=== PATIENT | male | born 1940 | race African-American/Black ===

== ENCOUNTER 2019-01-23 02:13 | Emergency (ER) | payer MEDICARE ==
[~2019-01-23] VITALS: Ht 188 cm; Wt 91.0 kg
[~2019-01-23 02:13] MED LIST: ALLO100T PO; AMLO10TA80 PO; CARI-166 PO; POTA99TA15 PO
[2019-01-23] MEDS ORDERED: TETANUS, DIPHTHERIA, PERTUSSIS VAC/PF 0.5ML (>7YR OLD) IM ONE (03:45)
[2019-01-23] MEDS ORDERED: BACITRACIN ZINC OINT UDPKT TOP ONE (03:45)
[2019-01-23] MEDS ORDERED: LIDOCAINE HCL/PF 1% 10 MG/ML 5ML VIAL IJ ONE (03:45)
[2019-01-23 05:32] VITALS: BP 148/79
== END 2019-01-23 05:32 | disposition home or self-care (01) ==
LOC: ER 02:28
DX: S01.111A Laceration without foreign body of right eyelid and periocular area, initial encounter (principal); W10.8XXA Fall (on) (from) other stairs and steps, initial encounter; Y93.89 Activity, other specified; Y92.89 Other specified places as the place of occurrence of the external cause; Y99.8 Other external cause status
CPT/HCPCS: 12014; 70450; 90471; 90715; 99284; J3490

== ENCOUNTER → 2019-11-21 | Outpatient (CLI) | payer MEDICARE ==
[~2019-11-21] MED LIST changes: -CARI-166 PO; +CARI350T28 PO
== END | disposition home or self-care (01) ==
LOC: LAB 08:59
PROVIDERS: ATTEND Internal Medicine Endocrinology, Diabetes & Metabolism
DX: Z20.828 Contact with and (suspected) exposure to other viral communicable diseases (principal)
CPT/HCPCS: 87635

== ENCOUNTER → 2019-11-23 | Day surgery (SDC) | payer MEDICARE ==
[~2019-11-23] MED LIST changes: +LIDOCAINE HCL 1% 20ML VIAL (Pyxis) INJ ONE; +SODIUM BICARBONATE 4% (2.4MEQ) 5ML VIAL IV ONE
== END | disposition home or self-care (01) ==
LOC: RAD 09:30
PROVIDERS: ATTEND Internal Medicine Endocrinology, Diabetes & Metabolism
DX: E04.2 Nontoxic multinodular goiter (principal); Z79.899 Other long term (current) drug therapy
CPT/HCPCS: 10005; 10006; 88305; J3490

== ENCOUNTER 2020-10-09 15:18 | Inpatient (IN) | payer MEDICARE ==
[~2020-10-09] VITALS: Ht 188 cm; Wt 104.9 kg
[~2020-10-09 15:18] MED LIST changes: -LIDOCAINE HCL 1% 20ML VIAL (Pyxis) INJ ONE; -SODIUM BICARBONATE 4% (2.4MEQ) 5ML VIAL IV ONE
[2020-10-09 21:10] LABS: BASOPHILS % 0.2 % (0.0-2.0); EOSINOPHILS % 0.3 % (0.0-5.0); HEMATOCRIT. 39.5 % (42.0-52.0); LYMPHOCYTES % 17.7 % (20.0-50.0); MEAN CORPUSCULAR HEMOGLOBIN 27.7 pg (28.0-32.0); MEAN CORPUSCULAR VOLUME 83.7 fL (80.0-94.0); MONOCYTES % 5.7 % (2.0-8.0); NEUTROPHILS % 76.1 % (40.0-76.0); PLATELET 330 x1000/uL (130-400); RED BLOOD CELL COUNT 4.71 mill/uL (4.7-6.1); RED CELL DISTRIBUTION WIDTH 14.8 % (11.6-14.6)
[2020-10-09 21:17] LABS: CHLORIDE 100 mEq/L (98-107)
[2020-10-09 21:19] LABS: PROTHROMBIN TIME 11.2 sec (9.6-11.0)
[2020-10-09 23:05] LABS: CLARITY URINE CLEAR (CLEAR); COLOR URINE YELLOW (YELLOW); KETONES URINE 1+ (NEGATIVE); LEUKOCYTE ESTERASE URINE NEGATIVE (NEGATIVE); NITRITE URINE NEGATIVE (NEGATIVE); OCCULT BLOOD URINE TRACE (NEGATIVE); PH URINE 5.5 (4.5-8.0); PROTEIN URINE 1+ (NEGATIVE); SPECIFIC GRAVITY URINE 1.011 (1.005-1.030); UROBILINOGEN URINE 0.2 E.U./dL (0.2-1.0)
[2020-10-09] MEDS ORDERED: SODIUM CHLORIDE 0.9% 1,000 ML IV ONE (23:30)
[2020-10-10] VITALS (14 sets, daily range): BP systolic 136–185; BP diastolic 87–104
[2020-10-10] MEDS ORDERED: CALC0.253 PO (02:01)
[2020-10-10] MEDS ORDERED: DUTA0.5C37 PO (02:01)
[2020-10-10] MEDS ORDERED: BENZ100C86 PO (02:01)
[2020-10-10] MEDS: DEXT 5%/0.45% NACL 1000ML 1,000 ML IV SCH ×2 (04:31→15:16)
[2020-10-10] MEDS ORDERED: NALOXONE HCL 0.4MG/ML VIAL IV PRN (04:45)
[2020-10-10] MEDS: CLONIDINE 0.1MG TABLET PO PRN (04:53)
[2020-10-10] MEDS: HYDROCODONE/ACETAMINOPHEN 5/325MG TABLET PO PRN ×2 (04:53→23:16)
[2020-10-10] MEDS ORDERED: BENZONATATE 100MG CAPSULE PO SCH (09:00)
[2020-10-10] MEDS ORDERED: CALCITRIOL 0.25MCG CAPSULE PO SCH (09:00)
[2020-10-10] MEDS: DUTASTERIDE 0.5MG CAPSULE PO SCH (09:12)
[2020-10-10] MEDS: ALLOPURINOL 100 MG TABLET PO SCH (09:12)
[2020-10-10] MEDS: AMLODIPINE 5MG TABLET PO SCH (09:12)
[2020-10-10] MEDS: ONDANSETRON HCL 4MG/2ML INJ IV PRN (15:37)
[2020-10-10] MEDS ORDERED: BISACODYL 10MG SUPP PR NR (15:45)
[2020-10-10] MEDS ORDERED: BENZONATATE 100MG CAPSULE PO PRN (15:45)
[2020-10-10] MEDS: SODIUM CHLORIDE 0.9% 1,000 ML IV SCH ×2 (16:59→22:57)
[2020-10-10] MEDS: METOCLOPRAMIDE HCL 10MG/2ML VIAL IV SCH ×2 (16:59→23:50)
[2020-10-10] MEDS: TAMSULOSIN HCL 0.4MG SR CAPSULE PO SCH (20:26)
[2020-10-11] VITALS (14 sets, daily range): BP systolic 127–161; BP diastolic 58–92
[2020-10-11] MEDS: CLONIDINE 0.1MG TABLET PO PRN (02:44)
[2020-10-11] MEDS: METOCLOPRAMIDE HCL 10MG/2ML VIAL IV SCH ×2 (05:28→11:58)
[2020-10-11] MEDS: SODIUM CHLORIDE 0.9% 1,000 ML IV SCH ×2 (05:28→19:23)
[2020-10-11 07:08] LABS: BASOPHILS % 0.4 % (0.0-2.0); EOSINOPHILS % 1.9 % (0.0-5.0); HEMATOCRIT. 31.6 % (42.0-52.0); HEMOGLOBIN. 10.6 g/dL (14.0-18.0); LYMPHOCYTES % 23.5 % (20.0-50.0); MEAN CORPUSCULAR HEMOGLOBIN 27.7 pg (28.0-32.0); MEAN CORPUSCULAR VOLUME 82.6 fL (80.0-94.0); MEAN PLATELET VOLUME 7.2 fl (7.4-10.4); MONOCYTES % 7.7 % (2.0-8.0); NEUTROPHILS % 66.5 % (40.0-76.0); PLATELET 263 x1000/uL (130-400); RED BLOOD CELL COUNT 3.82 mill/uL (4.7-6.1); RED CELL DISTRIBUTION WIDTH 14.5 % (11.6-14.6)
[2020-10-11 07:26] LABS: HEPATITIS B SURFACE AB < 3.1 mIU/mL
[2020-10-11 07:33] LABS: PHOSPHORUS 6.2 mg/dL (2.5-4.9)
[2020-10-11 07:36] LABS: HEPATITIS B SURFACE ANTIGEN NEGATIVE
[2020-10-11 08:06] LABS: HEPATITIS A AB IGM NEGATIVE (NEGATIVE)
[2020-10-11] MEDS ORDERED: VANCOMYCIN 1 G PREMIX 200 ML IV SCH (08:15)
[2020-10-11] MEDS: AMLODIPINE 5MG TABLET PO SCH (08:16)
[2020-10-11] MEDS: DUTASTERIDE 0.5MG CAPSULE PO SCH (08:16)
[2020-10-11] MEDS: ALLOPURINOL 100 MG TABLET PO SCH (08:16)
[2020-10-11] MEDS ORDERED: VANCOMYCIN 1,500 MG in DEXT 5% WATER 250 ML IV SCH (10:00)
[2020-10-11] MEDS ORDERED: HEPARIN 1000 UNITS/ML 10ML ONE (11:01)
[2020-10-11] MEDS ORDERED: LIDOCAINE HCL 1% 20ML VIAL (Pyxis) INJ ONE (11:01)
[2020-10-11] MEDS ORDERED: POLYETHYLENE GLYCOL 3350 (17GM) 1 DOSE PACK PO NR (12:15)
[2020-10-11] MEDS: HYDROCODONE/ACETAMINOPHEN 5/325MG TABLET PO PRN ×2 (13:59→23:59)
[2020-10-11 15:35] LABS: RHEUMATOID FACTOR SCREEN POSITIVE (NEGATIVE)
[2020-10-11] MEDS: ONDANSETRON HCL 4MG/2ML INJ IV PRN (15:39)
[2020-10-11] MEDS: ACETAMINOPHEN 325MG TABLET PO PRN (15:40)
[2020-10-11] MEDS: METOCLOPRAMIDE HCL 5MG TABLET PO SCH ×2 (17:02→21:00)
[2020-10-11] MEDS: TAMSULOSIN HCL 0.4MG SR CAPSULE PO SCH (21:00)
[2020-10-12] VITALS (12 sets, daily range): BP systolic 113–176; BP diastolic 64–95
[2020-10-12] MEDS: ONDANSETRON HCL 4MG/2ML INJ IV PRN ×2 (01:59→08:09)
[2020-10-12] MEDS: METOCLOPRAMIDE HCL 5MG TABLET PO SCH ×4 (06:05→21:15)
[2020-10-12 06:32] LABS: CHLORIDE 105 mEq/L (98-107)
[2020-10-12 06:40] LABS: PHOSPHORUS 5.4 mg/dL (2.5-4.9)
[2020-10-12 06:59] LABS: BASOPHILS % 0.5 % (0.0-2.0); EOSINOPHILS % 1.4 % (0.0-5.0); HEMATOCRIT. 33.1 % (42.0-52.0); HEMOGLOBIN. 11.2 g/dL (14.0-18.0); LYMPHOCYTES % 21.9 % (20.0-50.0); MEAN CORPUSCULAR HEMOGLOBIN 27.7 pg (28.0-32.0); MEAN CORPUSCULAR VOLUME 82.1 fL (80.0-94.0); MEAN PLATELET VOLUME 7.1 fl (7.4-10.4); MONOCYTES % 7.7 % (2.0-8.0); NEUTROPHILS % 68.5 % (40.0-76.0); PLATELET 265 x1000/uL (130-400); RED BLOOD CELL COUNT 4.03 mill/uL (4.7-6.1); RED CELL DISTRIBUTION WIDTH 14.8 % (11.6-14.6)
[2020-10-12] MEDS: DUTASTERIDE 0.5MG CAPSULE PO SCH (09:36)
[2020-10-12] MEDS: CALCITRIOL 0.25MCG CAPSULE PO SCH (09:37)
[2020-10-12] MEDS: ALLOPURINOL 100 MG TABLET PO SCH (09:37)
[2020-10-12] MEDS: AMLODIPINE 5MG TABLET PO SCH ×2 (09:37→17:10)
[2020-10-12] MEDS: POLYETHYLENE GLYCOL 3350 (17GM) 1 DOSE PACK PO SCH (12:44)
[2020-10-12] MEDS: CLONIDINE 0.1MG TABLET PO PRN (12:52)
[2020-10-12] MEDS: LACTULOSE 20G/30ML UDC PO SCH ×2 (14:08→21:14)
[2020-10-12] MEDS: SODIUM CHLORIDE 0.9% 1,000 ML IV SCH (14:11)
[2020-10-12] MEDS: TAMSULOSIN HCL 0.4MG SR CAPSULE PO SCH (21:15)
[2020-10-13] VITALS (14 sets, daily range): BP systolic 131–176; BP diastolic 65–96
[2020-10-13] MEDS: CLONIDINE 0.1MG TABLET PO PRN ×2 (00:28→23:48)
[2020-10-13 06:02] LABS: PHOSPHORUS 5.9 mg/dL (2.5-4.9)
[2020-10-13 06:07] LABS: BASOPHILS % 0.5 % (0.0-2.0); EOSINOPHILS % 2.2 % (0.0-5.0); HEMATOCRIT. 31.1 % (42.0-52.0); HEMOGLOBIN. 10.4 g/dL (14.0-18.0); MEAN CORPUSCULAR HEMOGLOBIN 27.6 pg (28.0-32.0); MEAN CORPUSCULAR VOLUME 82.3 fL (80.0-94.0); MONOCYTES % 9.5 % (2.0-8.0); NEUTROPHILS % 63.8 % (40.0-76.0); PLATELET 249 x1000/uL (130-400); RED BLOOD CELL COUNT 3.78 mill/uL (4.7-6.1); RED CELL DISTRIBUTION WIDTH 14.8 % (11.6-14.6)
[2020-10-13] MEDS: AMLODIPINE 5MG TABLET PO SCH ×2 (06:16→21:21)
[2020-10-13] MEDS: LACTULOSE 20G/30ML UDC PO SCH ×3 (06:16→21:21)
[2020-10-13] MEDS: METOCLOPRAMIDE HCL 5MG TABLET PO SCH ×4 (06:16→21:22)
[2020-10-13] MEDS ORDERED: BISACODYL 10MG SUPP PR NR (07:30)
[2020-10-13] MEDS: DUTASTERIDE 0.5MG CAPSULE PO SCH (08:37)
[2020-10-13] MEDS: POLYETHYLENE GLYCOL 3350 (17GM) 1 DOSE PACK PO SCH (08:37)
[2020-10-13] MEDS: ALLOPURINOL 100 MG TABLET PO SCH (08:37)
[2020-10-13] MEDS: SODIUM CHLORIDE 0.9% 1,000 ML IV SCH (11:39)
[2020-10-13] MEDS ORDERED: VANCOMYCIN 1250MG in DEXTROSE 5% WATER 250ML IV NR (12:00)
[2020-10-13] MEDS ORDERED: HEPARIN SODIUM 1,000 UNIT/1ML VIAL IV NR (12:15)
[2020-10-13] MEDS ORDERED: MAGNESIUM CITRATE 300ML SOLUTION PO NR (14:00)
[2020-10-13] MEDS: TAMSULOSIN HCL 0.4MG SR CAPSULE PO SCH (21:21)
[2020-10-14] VITALS (12 sets, daily range): BP systolic 110–147; BP diastolic 66–113
[2020-10-14] MEDS: METOCLOPRAMIDE HCL 5MG TABLET PO SCH ×4 (06:27→20:33)
[2020-10-14] MEDS: AMLODIPINE 5MG TABLET PO SCH ×2 (06:27→17:50)
[2020-10-14] MEDS: LACTULOSE 20G/30ML UDC PO SCH ×3 (06:27→22:00)
[2020-10-14 06:36] LABS: BASOPHILS % 0.5 % (0.0-2.0); EOSINOPHILS % 2.3 % (0.0-5.0); HEMATOCRIT. 31.4 % (42.0-52.0); HEMOGLOBIN. 10.4 g/dL (14.0-18.0); LYMPHOCYTES % 19.4 % (20.0-50.0); MEAN CORPUSCULAR HEMOGLOBIN 27.8 pg (28.0-32.0); MEAN CORPUSCULAR VOLUME 83.7 fL (80.0-94.0); MEAN PLATELET VOLUME 7.1 fl (7.4-10.4); MONOCYTES % 9.2 % (2.0-8.0); NEUTROPHILS % 68.6 % (40.0-76.0); PLATELET 262 x1000/uL (130-400); RED BLOOD CELL COUNT 3.75 mill/uL (4.7-6.1); RED CELL DISTRIBUTION WIDTH 14.9 % (11.6-14.6)
[2020-10-14] MEDS: POLYETHYLENE GLYCOL 3350 (17GM) 1 DOSE PACK PO SCH (09:00)
[2020-10-14] MEDS: ALLOPURINOL 100 MG TABLET PO SCH (09:27)
[2020-10-14] MEDS: CALCITRIOL 0.25MCG CAPSULE PO SCH (09:28)
[2020-10-14] MEDS: DUTASTERIDE 0.5MG CAPSULE PO SCH (09:28)
[2020-10-14] MEDS: ONDANSETRON HCL 4MG/2ML INJ IV PRN (10:51)
[2020-10-14] MEDS: ACETAMINOPHEN 325MG TABLET PO PRN (18:51)
[2020-10-14] MEDS: TAMSULOSIN HCL 0.4MG SR CAPSULE PO SCH (20:33)
[2020-10-15] VITALS (25 sets, daily range): BP systolic 140–172; BP diastolic 71–98
[2020-10-15 06:11] LABS: BASOPHILS % 0.5 % (0.0-2.0); EOSINOPHILS % 1.9 % (0.0-5.0); HEMATOCRIT. 32.8 % (42.0-52.0); HEMOGLOBIN. 10.8 g/dL (14.0-18.0); LYMPHOCYTES % 24.3 % (20.0-50.0); MEAN CORPUSCULAR HEMOGLOBIN 27.3 pg (28.0-32.0); MEAN CORPUSCULAR VOLUME 82.8 fL (80.0-94.0); MONOCYTES % 9.6 % (2.0-8.0); NEUTROPHILS % 63.7 % (40.0-76.0); PLATELET 246 x1000/uL (130-400); RED BLOOD CELL COUNT 3.96 mill/uL (4.7-6.1); RED CELL DISTRIBUTION WIDTH 14.9 % (11.6-14.6)
[2020-10-15 06:19] LABS: PHOSPHORUS 3.6 mg/dL (2.5-4.9)
[2020-10-15] MEDS: LACTULOSE 20G/30ML UDC PO SCH ×2 (06:33→14:00)
[2020-10-15] MEDS: METOCLOPRAMIDE HCL 5MG TABLET PO SCH (06:33)
[2020-10-15] MEDS: AMLODIPINE 5MG TABLET PO SCH (06:34)
[2020-10-15] MEDS ORDERED: FENTANYL CITRATE/PF 50MCG/ML 2ML VIAL ONE (07:31)
[2020-10-15] MEDS ORDERED: CEFAZOLIN 1000MG PREMIX 50 ML IV ONE (07:31)
[2020-10-15] MEDS ORDERED: HEPARIN 1000 UNITS/ML 10ML ONE (07:38)
[2020-10-15] MEDS ORDERED: LIDOCAINE HCL 1% 20ML VIAL (Pyxis) INJ ONE (07:39)
[2020-10-15] MEDS ORDERED: CEFAZOLIN 1000MG PREMIX 50 ML IV NR (08:00)
[2020-10-15] MEDS ORDERED: FENTANYL CITRATE/PF 50MCG/ML 2ML VIAL IV ONE (08:30)
[2020-10-15] MEDS ORDERED: FENTANYL CITRATE/PF 50MCG/ML 2ML VIAL IV NR (08:45)
[2020-10-15] MEDS: ACETAMINOPHEN 325MG TABLET PO PRN (08:53)
[2020-10-15] MEDS: ONDANSETRON HCL 4MG/2ML INJ IV PRN (08:53)
[2020-10-15] MEDS: ALLOPURINOL 100 MG TABLET PO SCH (08:54)
[2020-10-15] MEDS: POLYETHYLENE GLYCOL 3350 (17GM) 1 DOSE PACK PO SCH (09:03)
[2020-10-15] MEDS: DUTASTERIDE 0.5MG CAPSULE PO SCH (09:38)
== END 2020-10-15 16:40 | disposition home or self-care (01) | DRG 674 ==
LOC: ER 15:18 → ENRESERV 23:28 → 3WST 10-10 00:58
PROVIDERS: ADMIT Internal Medicine; ATTEND Internal Medicine
PROC: 05HY33Z Insertion of Infusion Device into Upper Vein, Percutaneous Approach (ICD-10-PCS; principal; 2020-10-11)
PROC: B54MZZA Ultrasonography of Right Upper Extremity Veins, Guidance (ICD-10-PCS; 2020-10-11)
PROC: B51M1ZZ Fluoroscopy of Right Upper Extremity Veins using Low Osmolar Contrast (ICD-10-PCS; 2020-10-11)
PROC: 5A1D70Z Performance of Urinary Filtration, Intermittent, Less than 6 Hours Per Day (ICD-10-PCS; 2020-10-11)
PROC: 5A1D70Z Performance of Urinary Filtration, Intermittent, Less than 6 Hours Per Day (ICD-10-PCS; 2020-10-13)
PROC: 5A1D70Z Performance of Urinary Filtration, Intermittent, Less than 6 Hours Per Day (ICD-10-PCS; 2020-10-14)
PROC: 0JH63XZ Insertion of Tunneled Vascular Access Device into Chest Subcutaneous Tissue and Fascia, Percutaneous Approach (ICD-10-PCS; 2020-10-15)
PROC: 05PYX3Z Removal of Infusion Device from Upper Vein, External Approach (ICD-10-PCS; 2020-10-15)
PROC: 02H633Z Insertion of Infusion Device into Right Atrium, Percutaneous Approach (ICD-10-PCS; 2020-10-15)
PROC: B5181ZA Fluoroscopy of Superior Vena Cava using Low Osmolar Contrast, Guidance (ICD-10-PCS; 2020-10-15)
PROC: B548ZZA Ultrasonography of Superior Vena Cava, Guidance (ICD-10-PCS; 2020-10-15)
DX: N17.9 Acute kidney failure, unspecified (principal); E87.1 Hypo-osmolality and hyponatremia; I31.3 Pericardial effusion (noninflammatory); I12.9 Hypertensive chronic kidney disease with stage 1 through stage 4 chronic kidney disease, or unspecified chronic kidney disease; E78.00 Pure hypercholesterolemia, unspecified; E86.0 Dehydration; C61 Malignant neoplasm of prostate; N18.32 Chronic kidney disease, stage 3b; Z20.822 Contact with and (suspected) exposure to COVID-19; K21.9 Gastro-esophageal reflux disease without esophagitis; K59.09 Other constipation; M10.9 Gout, unspecified; G89.29 Other chronic pain; M47.816 Spondylosis without myelopathy or radiculopathy, lumbar region; E21.3 Hyperparathyroidism, unspecified; R07.89 Other chest pain; K82.8 Other specified diseases of gallbladder; E78.5 Hyperlipidemia, unspecified; L73.9 Follicular disorder, unspecified; M19.011 Primary osteoarthritis, right shoulder; Z90.49 Acquired absence of other specified parts of digestive tract; Z79.899 Other long term (current) drug therapy; Z92.3 Personal history of irradiation; Z82.49 Family history of ischemic heart disease and other diseases of the circulatory system; Z87.01 Personal history of pneumonia (recurrent)
CPT/HCPCS: 36415; 36556; 36558; 36589; 71045; 76770; 76937; 77001; 80048; 80053; 80202; 81003; 82570; 84100; 84156; 84484; 84550; 85025; 85651; 86060; 86430; 86705; 86706; 86709; 86803; 87340; 87426; 93005; 99152; 99153; 99285; C1750; C1752; C1887; J0690; J1644; J2405; J2765; J3010; J3370; J3490; J7030; J7060; J8597; L8514; U0003; U0005; G0500

== ENCOUNTER → 2020-11-28 | Outpatient (CLI) | payer MEDICARE ==
[~2020-11-28] MED LIST changes: +ALBUTEROL (0.083%) 2.5MG/3ML NEB ONE; +BENZ100C86 PO; +CALC0.253 PO; -CARI350T28 PO; +DUTA0.5C37 PO; -POTA99TA15 PO
== END | disposition home or self-care (01) ==
LOC: PF 10:52
PROVIDERS: ATTEND Psychiatry & Neurology Neurology
DX: J44.9 Chronic obstructive pulmonary disease, unspecified (principal); G47.30 Sleep apnea, unspecified; Z20.822 Contact with and (suspected) exposure to COVID-19
CPT/HCPCS: 87426; 94060; 94727; 94729

== ENCOUNTER 2021-02-05 07:30 | Day surgery (SDC) | payer MEDICARE ==
[~2021-02-05] VITALS: Ht 188 cm; Wt 89.4 kg
[2021-02-05] VITALS (16 sets, daily range): BP systolic 123–180; BP diastolic 59–89
[~2021-02-05 07:30] MED LIST changes: -ALBUTEROL (0.083%) 2.5MG/3ML NEB ONE
[2021-02-05] MEDS ORDERED: SODIUM BICARBONATE 4% (2.4MEQ) 5ML VIAL IV ONE (08:55)
[2021-02-05] MEDS ORDERED: LIDOCAINE HCL 1% 10 MG/ML 10ML VIAL ONE (08:55)
[2021-02-05] MEDS ORDERED: FENTANYL CITRATE/PF 50MCG/ML 2ML VIAL ONE (09:35)
[2021-02-05] MEDS ORDERED: NIFEDIPINE 10MG CAPSULE ONE (09:43)
[2021-02-05] MEDS ORDERED: NIFEDIPINE 10MG CAPSULE PO ONE (09:45)
[2021-02-05] MEDS ORDERED: HYDROCODONE/ACETAMINOPHEN 5/325MG TABLET PO PRN (09:45)
[2021-02-05] MEDS ORDERED: FENTANYL CITRATE/PF 50MCG/ML 2ML VIAL IV ONE (10:00)
[2021-02-05 13:26] LABS: HEMATOCRIT 33.3 % (42.0-52.0)
== END 2021-02-05 14:28 | disposition home or self-care (01) ==
LOC: RAD 07:30
PROVIDERS: ATTEND Internal Medicine Nephrology
DX: N28.9 Disorder of kidney and ureter, unspecified (principal); Z87.891 Personal history of nicotine dependence; Z79.899 Other long term (current) drug therapy; Z72.89 Other problems related to lifestyle; Z20.822 Contact with and (suspected) exposure to COVID-19
CPT/HCPCS: 36415; 50200; 76942; 85014; 85018; 87426; 88305; 88346; 88348; J3010; J3490

== ENCOUNTER 2021-06-05 17:43 | Emergency (ER) | payer MEDICARE ==
[~2021-06-05] VITALS: Ht 188 cm; Wt 73.0 kg
[2021-06-05] MEDS ORDERED: SODIUM CHLORIDE 0.9% 250 ML IV ONE (18:45)
[2021-06-05 18:57] LABS: BASOPHILS % 0.5 % (0.0-2.0); HEMATOCRIT. 32.1 % (42.0-52.0); LYMPHOCYTES % 30.6 % (20.0-50.0); MEAN CORPUSCULAR HEMOGLOBIN 28.4 pg (28.0-32.0); MEAN CORPUSCULAR VOLUME 83.1 fL (80.0-94.0); MEAN PLATELET VOLUME 6.9 fl (7.4-10.4); MONOCYTES % 9.5 % (2.0-8.0); NEUTROPHILS % 58.4 % (40.0-76.0); PLATELET 268 x1000/uL (130-400); RED BLOOD CELL COUNT 3.87 mill/uL (4.7-6.1); RED CELL DISTRIBUTION WIDTH 15.2 % (11.6-14.6)
[2021-06-05 19:06] LABS: CHLORIDE 104 mEq/L (98-107)
[2021-06-05 20:14] VITALS: BP 142/64
== END 2021-06-05 20:17 | disposition home or self-care (01) ==
LOC: ER 17:43
DX: R53.1 Weakness (principal); I12.0 Hypertensive chronic kidney disease with stage 5 chronic kidney disease or end stage renal disease; N18.6 End stage renal disease; E78.00 Pure hypercholesterolemia, unspecified; F03.90 Unspecified dementia, unspecified severity, without behavioral disturbance, psychotic disturbance, mood disturbance, and anxiety; Z99.2 Dependence on renal dialysis; Z90.49 Acquired absence of other specified parts of digestive tract; Z85.9 Personal history of malignant neoplasm, unspecified
CPT/HCPCS: 36415; 71045; 80053; 83880; 84484; 85025; 93005; 99285; J7050

== ENCOUNTER 2022-04-04 09:29 | Emergency (ER) | payer MEDICARE ==
[~2022-04-04] VITALS: Ht 188 cm; Wt 76.0 kg
[2022-04-04 09:39] VITALS: BP 154/77
== END 2022-04-04 11:59 | disposition home or self-care (01) ==
LOC: ER 09:51
DX: R05.9 Cough, unspecified (principal); E11.22 Type 2 diabetes mellitus with diabetic chronic kidney disease; I12.0 Hypertensive chronic kidney disease with stage 5 chronic kidney disease or end stage renal disease; N18.6 End stage renal disease; F03.90 Unspecified dementia, unspecified severity, without behavioral disturbance, psychotic disturbance, mood disturbance, and anxiety; E78.00 Pure hypercholesterolemia, unspecified; Z20.822 Contact with and (suspected) exposure to COVID-19; Z99.2 Dependence on renal dialysis; Z85.9 Personal history of malignant neoplasm, unspecified; Z90.49 Acquired absence of other specified parts of digestive tract; Z98.890 Other specified postprocedural states
CPT/HCPCS: 71045; 87426; 87804; 99284; C9803

== ENCOUNTER 2022-04-25 12:25 | Inpatient (IN) | payer MEDICARE ==
[~2022-04-25] VITALS: Ht 188 cm; Wt 60.8 kg
[2022-04-25 17:17] LABS: BASOPHILS % 0.3 % (0.0-2.0); EOSINOPHILS % 1.1 % (0.0-5.0); HEMATOCRIT. 36.9 % (42.0-52.0); HEMOGLOBIN. 12.2 g/dL (14.0-18.0); LYMPHOCYTES % 20.3 % (20.0-50.0); MEAN CORPUSCULAR HEMOGLOBIN 28.8 pg (28.0-32.0); MEAN CORPUSCULAR VOLUME 87.3 fL (80.0-94.0); MEAN PLATELET VOLUME 7.4 fl (7.4-10.4); MONOCYTES % 8.7 % (2.0-8.0); NEUTROPHILS % 69.6 % (40.0-76.0); PLATELET 232 x1000/uL (130-400); RED BLOOD CELL COUNT 4.23 mill/uL (4.7-6.1); RED CELL DISTRIBUTION WIDTH 15.7 % (11.6-14.6)
[2022-04-25 17:22] LABS: PROTHROMBIN TIME 11.1 sec (9.6-11.0)
[2022-04-25 17:28] LABS: CHLORIDE 113 mEq/L (98-107)
[2022-04-25] MEDS ORDERED: DEXTROSE 50% WATER 50ML SYRINGE IV ONE (18:15)
[2022-04-25] MEDS ORDERED: INSULIN REGULAR (HUMULIN R) 300UNITS/3ML VIAL IV ONE (18:15)
[2022-04-25] MEDS ORDERED: SODIUM BICARBONATE 8.4% 1 MEQ/ML 50ML SYR IV ONE (18:15)
[2022-04-25 18:48] LABS: CLARITY URINE CLEAR (CLEAR); COLOR URINE YELLOW (YELLOW); KETONES URINE NEGATIVE (NEGATIVE); LEUKOCYTE ESTERASE URINE NEGATIVE (NEGATIVE); NITRITE URINE NEGATIVE (NEGATIVE); OCCULT BLOOD URINE NEGATIVE (NEGATIVE); PH URINE 6.5 (4.5-8.0); PROTEIN URINE 2+ (NEGATIVE); SPECIFIC GRAVITY URINE 1.013 (1.005-1.030); UROBILINOGEN URINE 0.2 E.U./dL (0.2-1.0)
[2022-04-25] MEDS ORDERED: CLONIDINE 0.2MG TABLET PO NR (20:15)
[2022-04-25] MEDS ORDERED: LACTULOSE 20G/30ML UDC PO NR (21:00)
[2022-04-25] MEDS ORDERED: AMLODIPINE 2.5MG TABLET PO SCH (21:00)
[2022-04-26 05:04] LABS: BASOPHILS % 0.4 % (0.0-2.0); EOSINOPHILS % 0.8 % (0.0-5.0); HEMATOCRIT. 34.8 % (42.0-52.0); HEMOGLOBIN. 11.8 g/dL (14.0-18.0); LYMPHOCYTES % 18.7 % (20.0-50.0); MEAN CORPUSCULAR VOLUME 85.3 fL (80.0-94.0); MEAN PLATELET VOLUME 7.3 fl (7.4-10.4); MONOCYTES % 14.6 % (2.0-8.0); NEUTROPHILS % 65.5 % (40.0-76.0); PLATELET 242 x1000/uL (130-400); RED BLOOD CELL COUNT 4.08 mill/uL (4.7-6.1)
[2022-04-26 05:16] LABS: CHLORIDE 116 mEq/L (98-107)
[2022-04-26 05:23] LABS: PHOSPHORUS 4.7 mg/dL (2.5-4.9)
[2022-04-26] MEDS: DOCUSATE SODIUM 100MG CAPSULE PO SCH ×2 (06:00→18:00)
[2022-04-26] MEDS: FOLIC ACID/VITAMIN B COMP W-C TABLET PO SCH (09:48)
[2022-04-26 10:36] VITALS: BP 161/78
[2022-04-26 12:00] VITALS: BP 176/77
[2022-04-26] MEDS ORDERED: ONDANSETRON HCL 4MG/2ML INJ IV PRN (12:00)
[2022-04-26] MEDS: ACETAMINOPHEN 325MG TABLET PO PRN ×2 (12:56→22:05)
[2022-04-26] MEDS ORDERED: AMLODIPINE 10MG TABLET PO SCH (13:00)
[2022-04-26] MEDS: ENOXAPARIN 30MG/0.3ML SYR SUBCUT SCH (13:58)
[2022-04-26 16:00] VITALS: BP 143/70
[2022-04-26] MEDS ORDERED: METO5TAB2 PO (17:49)
[2022-04-26] MEDS ORDERED: TAMS-11 PO (17:49)
[2022-04-26] MEDS ORDERED: AMLO10TA80 PO (17:49)
[2022-04-26 20:00] VITALS: BP 136/66
[2022-04-26 23:20] VITALS: BP 140/71
[2022-04-26 23:25] VITALS: BP 155/78
[2022-04-27] VITALS (11 sets, daily range): BP systolic 109–172; BP diastolic 59–84
[2022-04-27 00:04] LABS: HEPATITIS B SURFACE ANTIGEN NEGATIVE
[2022-04-27] MEDS ORDERED: HYDRALAZINE 20MG/ML VIAL IV PRN (03:30)
[2022-04-27] MEDS: DOCUSATE SODIUM 100MG CAPSULE PO SCH ×2 (06:15→17:15)
[2022-04-27] MEDS: FOLIC ACID/VITAMIN B COMP W-C TABLET PO SCH (08:40)
[2022-04-27] MEDS: ENOXAPARIN 30MG/0.3ML SYR SUBCUT SCH (08:40)
[2022-04-27] MEDS ORDERED: AMLODIPINE 5MG TABLET PO SCH (09:00)
[2022-04-27] MEDS ORDERED: INFLUENZA VACCINE 05/PF 0.5 ML SYRINGE IM ONE (09:00)
[2022-04-27 17:04] LABS: BASOPHILS % 0.5 % (0.0-2.0); EOSINOPHILS % 1.4 % (0.0-5.0); HEMATOCRIT. 35.6 % (42.0-52.0); HEMOGLOBIN. 12.1 g/dL (14.0-18.0); LYMPHOCYTES % 22.3 % (20.0-50.0); MEAN CORPUSCULAR HEMOGLOBIN 28.8 pg (28.0-32.0); MEAN CORPUSCULAR VOLUME 85.2 fL (80.0-94.0); MEAN PLATELET VOLUME 7.5 fl (7.4-10.4); MONOCYTES % 12.3 % (2.0-8.0); NEUTROPHILS % 63.5 % (40.0-76.0); PLATELET 251 x1000/uL (130-400); RED BLOOD CELL COUNT 4.18 mill/uL (4.7-6.1); RED CELL DISTRIBUTION WIDTH 15.1 % (11.6-14.6)
[2022-04-27 17:46] LABS: CHLORIDE 105 mEq/L (98-107)
[2022-04-27] MEDS: ACETAMINOPHEN 325MG TABLET PO PRN (20:41)
[2022-04-28] VITALS: BP 143/65
[2022-04-28 04:00] VITALS: BP 110/60
[2022-04-28] MEDS: DOCUSATE SODIUM 100MG CAPSULE PO SCH (05:59)
[2022-04-28 06:09] LABS: BASOPHILS % 0.6 % (0.0-2.0); EOSINOPHILS % 1.4 % (0.0-5.0); HEMATOCRIT. 33.5 % (42.0-52.0); HEMOGLOBIN. 11.5 g/dL (14.0-18.0); LYMPHOCYTES % 31.3 % (20.0-50.0); MEAN CORPUSCULAR HEMOGLOBIN 29.1 pg (28.0-32.0); MEAN CORPUSCULAR VOLUME 84.5 fL (80.0-94.0); MEAN PLATELET VOLUME 7.5 fl (7.4-10.4); NEUTROPHILS % 53.7 % (40.0-76.0); PLATELET 246 x1000/uL (130-400); RED BLOOD CELL COUNT 3.97 mill/uL (4.7-6.1); RED CELL DISTRIBUTION WIDTH 14.9 % (11.6-14.6)
[2022-04-28 08:00] VITALS: BP 140/68
[2022-04-28 08:16] LABS: CHLORIDE 109 mEq/L (98-107)
[2022-04-28 08:30] LABS: PHOSPHORUS 4.4 mg/dL (2.5-4.9)
[2022-04-28] MEDS ORDERED: LACTULOSE 20G/30ML UDC PO SCH (08:30)
[2022-04-28] MEDS ORDERED: MEMA5TAB42 MT (08:36)
[2022-04-28] MEDS ORDERED: AMLODIPINE 2.5MG TABLET PO SCH (09:00)
[2022-04-28] MEDS ORDERED: AMLODIPINE 10MG TABLET PO SCH (09:00)
[2022-04-28] MEDS ORDERED: MEMANTINE HCL 5MG TABLET PO SCH (09:00)
[2022-04-28 09:01] LABS: VITAMIN B12 SERUM > 2000.0 pg/mL (211-911)
[2022-04-28] MEDS: FOLIC ACID/VITAMIN B COMP W-C TABLET PO SCH (09:13)
[2022-04-28] MEDS: ENOXAPARIN 30MG/0.3ML SYR SUBCUT SCH (09:14)
[2022-04-28 10:38] VITALS: BP 131/64
[2022-04-28 12:00] VITALS: BP 140/66
[2022-04-28 14:08] LABS: A/G RATIO 0.9 (0.7-1.7); ALBUMIN 2.9 g/dL (2.9-4.4); ALPHA-1-GLOBULIN 0.3 g/dL (0.0-0.4); ALPHA-2-GLOBULIN 0.7 g/dL (0.4-1.0); BETA GLOBULIN 0.9 g/dL (0.7-1.3); GAMMA GLOBULINS 1.2 g/dL (0.4-1.8); GLOBULIN TOTAL 3.2 g/dL (2.2-3.9); M-SPIKE Not Observed g/dL (Not Observed); TOTAL PROTEIN SERUM 6.1 g/dL (6.0-8.5)
== END 2022-04-28 14:15 | disposition home health service (06) | DRG 70 ==
LOC: ER 13:27 → 7EST 19:02 → EDBEDREQ 19:05
PROVIDERS: ADMIT Internal Medicine; ATTEND Internal Medicine
PROC: 5A1D70Z Performance of Urinary Filtration, Intermittent, Less than 6 Hours Per Day (ICD-10-PCS; principal; 2022-04-26)
PROC: 4A00X4Z Measurement of Central Nervous Electrical Activity, External Approach (ICD-10-PCS; 2022-04-28)
DX: G93.41 Metabolic encephalopathy (principal); N17.0 Acute kidney failure with tubular necrosis; N18.6 End stage renal disease; I12.0 Hypertensive chronic kidney disease with stage 5 chronic kidney disease or end stage renal disease; E87.20 Acidosis, unspecified; E87.5 Hyperkalemia; E78.00 Pure hypercholesterolemia, unspecified; D63.1 Anemia in chronic kidney disease; F03.A0 Unspecified dementia, mild, without behavioral disturbance, psychotic disturbance, mood disturbance, and anxiety; K59.09 Other constipation; E21.3 Hyperparathyroidism, unspecified; K21.9 Gastro-esophageal reflux disease without esophagitis; M10.9 Gout, unspecified; L91.0 Hypertrophic scar; L73.9 Follicular disorder, unspecified; Z91.15 Patient's noncompliance with renal dialysis; Z92.3 Personal history of irradiation; Z82.49 Family history of ischemic heart disease and other diseases of the circulatory system; Z90.49 Acquired absence of other specified parts of digestive tract; Z99.2 Dependence on renal dialysis; Z85.46 Personal history of malignant neoplasm of prostate; Z79.899 Other long term (current) drug therapy; Z82.3 Family history of stroke
CPT/HCPCS: 36415; 70551; 71045; 80048; 80053; 81003; 82607; 82962; 83735; 83880; 84100; 84153; 84155; 84165; 84443; 84484; 85025; 86705; 86709; 86803; 87340; 90935; 93005; 95816; 97162; 97166; 99285; J1650; J1815; J3490; G0103

== ENCOUNTER 2023-08-21 13:30 | Inpatient (IN) | payer MEDICARE ==
[~2023-08-21] VITALS: Ht 193 cm; Wt 70.1 kg
[~2023-08-21 13:30] MED LIST changes: -ALLO100T PO; -AMLO10TA80 PO; -BENZ100C86 PO; -CALC0.253 PO; -DUTA0.5C37 PO; +MEMA5TAB42 MT
[2023-08-21] MEDS: MORPHINE SULFATE 4 MG/ML INJ (FOR IV/IM USE) IV STA (14:20)
[2023-08-21] MEDS: ONDANSETRON HCL 4MG/2ML INJ IV STA (14:20)
[2023-08-21] MEDS: SODIUM CHLORIDE 0.9% 1000ML BAG (SEPSIS BOLUS) IV ONE (14:21)
[2023-08-21 14:33] LABS: BASOPHILS % 0.3 % (0.0-2.0); EOSINOPHILS % 0.1 % (0.0-5.0); HEMATOCRIT. 33.1 % (42.0-52.0); HEMOGLOBIN. 11.4 g/dL (14.0-18.0); LYMPHOCYTES % 18.3 % (20.0-50.0); MEAN CORPUSCULAR HEMOGLOBIN 29.5 pg (28.0-32.0); MEAN CORPUSCULAR HGB CONC 34.3 g/dL (31.0-37.0); MEAN PLATELET VOLUME 7.5 fl (7.4-10.4); MONOCYTES % 11.1 % (2.0-8.0); NEUTROPHILS % 70.2 % (40.0-76.0); PLATELET 191 x1000/uL (130-400); RED BLOOD CELL COUNT 3.85 mill/uL (4.7-6.1); RED CELL DISTRIBUTION WIDTH 15.6 % (11.6-14.6)
[2023-08-21 14:43] LABS: INR 0.9; PARTIAL THROMBOPLASTIN TIME 22.2 sec (23.4-31.0); PROTHROMBIN TIME 10.4 sec (9.6-11.0)
[2023-08-21 15:32] LABS: CHLORIDE 96 mEq/L (98-107); POTASSIUM 3.8 mEq/L (3.5-5.1); SODIUM 137 mEq/L (136-145)
[2023-08-21 15:34] LABS: CARBON DIOXIDE 28 mEq/L (21-32)
[2023-08-21 15:35] LABS: CALCIUM 10.3 mg/dL (8.7-10.4)
[2023-08-21 15:39] LABS: CREATININE 4.6 mg/dL (0.6-1.3); GLUCOSE 95 mg/dL (70-105)
[2023-08-21 15:40] LABS: TROPONIN I HIGH SENSITIVITY 48 ng/L (3.0-53); UREA NITROGEN BLOOD 36 mg/dL (9-23)
[2023-08-21 15:41] LABS: ALANINE AMINOTRANSFERASE 13 IU/L (10-49); ASPARTATE AMINOTRANSFERASE 24 IU/L (<34)
[2023-08-21 15:42] LABS: CLARITY URINE CLEAR (CLEAR); COLOR URINE DARK YELLOW (YELLOW); GLUCOSE URINE NEGATIVE (NEGATIVE); KETONES URINE TRACE (NEGATIVE); LEUKOCYTE ESTERASE URINE NEGATIVE (NEGATIVE); NITRITE URINE NEGATIVE (NEGATIVE); OCCULT BLOOD URINE NEGATIVE (NEGATIVE); PROTEIN URINE 2+ (NEGATIVE); SPECIFIC GRAVITY URINE 1.015 (1.005-1.030)
[2023-08-21 15:42] LABS: BILIRUBIN TOTAL 0.6 mg/dL (0.1-1.0); PROTEIN TOTAL 6.9 g/dL (6.0-8.3)
[2023-08-21 15:59] LABS: SQUAMOUS EPITHELIAL CELL URINE 1+ /lpf (RARE/1+)
[2023-08-21 16:00] LABS: WBC URINE 0-2 /hpf (0-2)
[2023-08-21 16:01] LABS: BACTERIA URINE NONE SEEN; RBC URINE 0-2 /hpf (0-2)
[2023-08-21] MEDS ORDERED: DIPHENHYDRAMINE 50MG/ML VIAL IV PRN (19:00)
[2023-08-21] MEDS ORDERED: ONDANSETRON HCL 4MG/2ML INJ IV PRN (19:00)
[2023-08-21] MEDS ORDERED: IPRATROPIUM/ALBUTEROL 0.5-3(2.5)MG/3ML NEB HHN PRN (19:00)
[2023-08-21] MEDS ORDERED: ACETAMINOPHEN 325MG TABLET PO PRN (19:00)
[2023-08-21] MEDS ORDERED: CLONIDINE 0.1MG TABLET PO PRN (19:00)
[2023-08-21 23:15] VITALS: BP 167/66; PULSE 66; RESP 20; TEMP 97.1
[2023-08-22] VITALS (13 sets, daily range): BP systolic 108–167; BP diastolic 57–74; PULSE 57–66; RESP 18–20; TEMP 97.1–98.6
[2023-08-22] MEDS ORDERED: AMLO5TAB4 PO (06:26)
[2023-08-22 07:42] LABS: BASOPHILS % 0.3 % (0.0-2.0); EOSINOPHILS % 0.6 % (0.0-5.0); HEMATOCRIT. 30.7 % (42.0-52.0); HEMOGLOBIN. 10.2 g/dL (14.0-18.0); LYMPHOCYTES % 30.2 % (20.0-50.0); MEAN CORPUSCULAR HGB CONC 33.3 g/dL (31.0-37.0); MEAN CORPUSCULAR VOLUME 87.2 fL (80.0-94.0); MONOCYTES % 9.8 % (2.0-8.0); NEUTROPHILS % 59.1 % (40.0-76.0); RED BLOOD CELL COUNT 3.52 mill/uL (4.7-6.1); RED CELL DISTRIBUTION WIDTH 15.6 % (11.6-14.6)
[2023-08-22 07:57] LABS: POTASSIUM 3.7 mEq/L (3.5-5.1)
[2023-08-22 07:58] LABS: CALCIUM 9.6 mg/dL (8.7-10.4)
[2023-08-22 08:01] LABS: DIFFERENTIAL COMMENT 1
[2023-08-22 08:03] LABS: CREATININE 4.1 mg/dL (0.6-1.3)
[2023-08-22] MEDS: AMLODIPINE 5MG TABLET PO SCH (11:21)
[2023-08-22] MEDS: MEMANTINE HCL 5MG TABLET PO SCH (11:21)
[2023-08-22 12:06] LABS: PLATELET 179 x1000/uL (130-400)
[2023-08-22] MEDS: CEFTRIAXONE 2GM/50ML 50 ML IV SCH (18:35)
[2023-08-22] MEDS: AZITHROMYCIN 500 MG TABLET PO NR (18:43)
[2023-08-22] MEDS: ACETAMINOPHEN 500MG TABLET PO PRN (23:03)
[2023-08-23 04:00] VITALS: BP 124/57; PULSE 58; RESP 18; TEMP 98
[2023-08-23 06:59] LABS: BASOPHILS % 0.2 % (0.0-2.0); HEMATOCRIT. 32.7 % (42.0-52.0); HEMOGLOBIN. 10.8 g/dL (14.0-18.0); MEAN CORPUSCULAR HEMOGLOBIN 28.5 pg (28.0-32.0); MEAN CORPUSCULAR HGB CONC 33.1 g/dL (31.0-37.0); MEAN PLATELET VOLUME 7.9 fl (7.4-10.4); MONOCYTES % 10.6 % (2.0-8.0); NEUTROPHILS % 54.2 % (40.0-76.0); PLATELET 199 x1000/uL (130-400); RED CELL DISTRIBUTION WIDTH 15.4 % (11.6-14.6); WHITE BLOOD COUNT 4.7 x1000/uL (4.5-11.0)
[2023-08-23 07:08] LABS: CARBON DIOXIDE 29 mEq/L (21-32); CHLORIDE 96 mEq/L (98-107); POTASSIUM 3.5 mEq/L (3.5-5.1); SODIUM 136 mEq/L (136-145)
[2023-08-23 07:09] LABS: CALCIUM 9.5 mg/dL (8.7-10.4)
[2023-08-23 07:13] LABS: CREATININE 3.3 mg/dL (0.6-1.3); GLUCOSE 86 mg/dL (70-105)
[2023-08-23 07:14] LABS: UREA NITROGEN BLOOD 23 mg/dL (9-23)
[2023-08-23 07:16] LABS: PHOSPHORUS 2.6 mg/dL (2.5-4.9)
[2023-08-23 08:00] VITALS: BP 125/61; PULSE 58; RESP 18; TEMP 98.7
[2023-08-23] MEDS: AZITHROMYCIN 250 MG TABLET PO SCH (08:16)
[2023-08-23] MEDS: AMLODIPINE 5MG TABLET PO SCH (09:00)
[2023-08-23] MEDS: LACTULOSE 20G/30ML UDC PO SCH (09:20)
[2023-08-23] MEDS: FOLIC ACID/VITAMIN B COMP W-C TABLET PO SCH (09:51)
[2023-08-23 12:00] VITALS: BP 123/61; PULSE 54; RESP 18; TEMP 97.6
[2023-08-23 16:00] VITALS: BP 143/61; PULSE 59; RESP 18; TEMP 98.9
[2023-08-23 20:00] VITALS: BP 129/60; PULSE 56; RESP 18; TEMP 99
[2023-08-23] MEDS: FAMOTIDINE 20MG TABLET PO SCH (20:49)
[2023-08-24 00:06] VITALS: BP 123/64; PULSE 60; RESP 20; TEMP 98.9
[2023-08-24 04:00] VITALS: BP 123/51; PULSE 66; RESP 18; TEMP 98.8
[2023-08-24 08:00] VITALS: BP 106/51; PULSE 63; RESP 20; TEMP 98.9
[2023-08-24] MEDS: AMLODIPINE 2.5MG TABLET PO SCH (09:00)
[2023-08-24 12:00] VITALS: BP_SYST 106; BP_SYST 112; BP_DIAS 51; BP_DIAS 54; PULSE 63; PULSE 65; RESP 20; TEMP 97.6; TEMP 98.9
[2023-08-24] MEDS ORDERED: NEPVIT PO (14:58)
[2023-08-24] MEDS ORDERED: AMLO2.5T45 PO (14:58)
[2023-08-24 16:00] VITALS: BP 127/56; PULSE 62; RESP 20; TEMP 98.9
[2023-08-24] MEDS: SORBITOL 70% SOLN 30ML PO NR (16:04)
[2023-08-24 20:00] VITALS: BP 111/53; PULSE 63; RESP 20; TEMP 98.6
[2023-08-25] VITALS: BP 117/60; PULSE 67; RESP 18; TEMP 98.9
[2023-08-25 04:00] VITALS: BP 123/67; PULSE 69; RESP 18; TEMP 98.9
[2023-08-25 08:00] VITALS: BP 120/79; PULSE 88; RESP 18; TEMP 97.6
[2023-08-25 10:34] VITALS: BP 120/79; PULSE 88; TEMP 97.6; O2SAT 97
[2023-08-25 12:00] VITALS: BP 118/86; PULSE 80; RESP 18; TEMP 98
[2023-08-25 15:56] LABS: HEPATITIS B SURFACE ANTIGEN NEGATIVE (Negative)
[2023-08-25 16:00] VITALS: BP 130/62; PULSE 58; RESP 22; TEMP 98.6
[2023-08-25 16:02] LABS: HEPATITIS A AB IGM NEGATIVE (Negative)
[2023-08-25 16:03] LABS: HEPATITIS B CORE AB IGM NEGATIVE (Negative); HEPATITIS C AB NON REACTIVE (Neg) (Negative)
[2023-08-25] MEDS ORDERED: LACTULOSE 20G/30ML UDC PO SCH (21:00)
== END 2023-08-25 18:50 | DRG 177 ==
LOC: ER 14:18 → 7WST 17:07 → EDBEDREQ 17:13 → EDBEDREQTM 17:13
PROVIDERS: ADMIT Internal Medicine; ATTEND Internal Medicine
PROC: 5A1D70Z Performance of Urinary Filtration, Intermittent, Less than 6 Hours Per Day (ICD-10-PCS; principal; 2023-08-22)
DX: U07.1 COVID-19 (principal); N18.6 End stage renal disease; I13.11 Hypertensive heart and chronic kidney disease without heart failure, with stage 5 chronic kidney disease, or end stage renal disease; F03.90 Unspecified dementia, unspecified severity, without behavioral disturbance, psychotic disturbance, mood disturbance, and anxiety; E11.22 Type 2 diabetes mellitus with diabetic chronic kidney disease; Z99.2 Dependence on renal dialysis; D64.9 Anemia, unspecified; N40.0 Benign prostatic hyperplasia without lower urinary tract symptoms; K59.00 Constipation, unspecified; G47.33 Obstructive sleep apnea (adult) (pediatric); E78.5 Hyperlipidemia, unspecified; Z90.49 Acquired absence of other specified parts of digestive tract; Z85.46 Personal history of malignant neoplasm of prostate; Z82.49 Family history of ischemic heart disease and other diseases of the circulatory system; Z79.899 Other long term (current) drug therapy; Z78.9 Other specified health status
CPT/HCPCS: 36415; 71045; 74176; 80048; 80053; 81003; 83605; 83735; 83880; 84100; 84145; 84484; 85025; 86705; 86709; 87340; 87426; 90935; 93005; 93970; 97162; 99285; J0696; J2270; J2405; J7030